=== PATIENT | male | born 1975 | race Caucasian/White ===

== ENCOUNTER 2019-11-04 23:10 | Emergency (ER) | payer MEDICAID ==
[~2019-11-04] VITALS: Ht 180.3 cm; Wt 53.9 kg
--- NOTE | 2019-11-04 23:56 | NUR ---
PT C/O LEFT SIDE DIMINISHED SENSATION FOR A COUPLE DAYS. 1X EMESIS TODAY. BM 3 DAYS AGO. JUST NOT FEELING WELL. CONNECTED TO MONITORING. CALL LIGHT IN REACH.
[2019-11-04 23:57] LABS: BASOPHILS # (AUTO) 0.04 x10^3/uL (0-0.1); BASOPHILS % (AUTO) 0 % (0-1); EOSINOPHILS # (AUTO) 0.07 x10^3/uL (0-0.4); EOSINOPHILS % (AUTO) 1 % (1-7); LYMPHOCYTES # (AUTO) 2.82 x10^3/uL (1-3.4); LYMPHOCYTES % (AUTO) 31 % (22-44); MD NO; MEAN CORPUSCULAR HEMOGLOBIN 32.8 pg (27.5-34.5); MEAN CORPUSCULAR HGB CONC 33.2 g/dL (33.2-36.2); MEAN CORPUSCULAR VOLUME 98.7 fL (81-97); MEAN PLATELET VOLUME 8.3 fL (7.4-10.4); MONOCYTES % (AUTO) 10 % (2-9); NEUTROPHILS # (AUTO) 5.41 x10^3/uL (1.8-6.8); NEUTROPHILS % (AUTO) 59 % (42-75); PLATELET COUNT 223 x10^3/uL (130-400); RED CELL DISTRIBUTION WIDTH 13.1 % (9.4-14.8)
--- NOTE | 2019-11-05 00:02 | NUR ---
RECEIVED REPORT FROM VIKAS SAM.
[2019-11-05 00:10] LABS: ALANINE AMINOTRANSFERASE 21 U/L (12-78); ALBUMIN 3.7 g/dL (3.4-5.0); ANION GAP 6 mmol/L (5-15); CALCIUM 8.3 mg/dL (8.5-10.1); CHLORIDE 113 mmol/L (98-107); CREATININE 0.86 mg/dL (0.7-1.3)
[2019-11-05 00:15] LABS: ALKALINE PHOSPHATASE 51 U/L (45-117); BILIRUBIN,TOTAL 0.4 mg/dL (0.2-1.0); TOTAL PROTEIN 6.9 g/dL (6.4-8.2); TROPONIN I < 0.015 ng/mL (0.000-0.045)
--- NOTE | 2019-11-05 01:46 | NUR ---
ALL LABS AND X RAY RESULTED. PA AT BEDSIDE FOR RE-EVALUATION.
--- NOTE | 2019-11-05 02:07 | NUR ---
PATIENT DISCHARGED WITH INSTRUCTION. VERBALIZED UNDERSTANDING.
[2019-11-05 02:20] VITALS: BP 123/71
== END 2019-11-05 02:22 | disposition home or self-care (01) ==
LOC: ED 11-05 00:38
DX: I10 Essential (primary) hypertension (principal); R07.9 Chest pain, unspecified; R20.2 Paresthesia of skin; J44.9 Chronic obstructive pulmonary disease, unspecified; G40.909 Epilepsy, unspecified, not intractable, without status epilepticus; Z87.891 Personal history of nicotine dependence
CPT/HCPCS: 36415; 71045; 80053; 84484; 85025; 93005; 99284

== ENCOUNTER 2019-11-19 12:40 | Emergency (ER) | payer MEDICAID ==
[~2019-11-19] VITALS: Ht 177.8 cm; Wt 59.1 kg
--- NOTE | 2019-11-19 13:27 | NUR ---
PT STATES HAVING MEMORY PROBLEMS FOR ABOUT A MONTH, PT STATES HAVING NUMBNESS ON L SIDE OF BODY THAT IS INTERMITTANT. PT ALSO STATES BP HAS BEEN ELEVATED LATELY AND HE DOESNT TAKE BP MEDS. PT DENIES CP, SOB.
[2019-11-19] MEDS ORDERED: ACETAMINOPHEN 500 MG TABLET PO ONE (14:00)
[2019-11-19 14:07] LABS: BASOPHILS # (AUTO) 0.04 x10^3/uL (0-0.1); BASOPHILS % (AUTO) 0 % (0-1); EOSINOPHILS # (AUTO) 0.04 x10^3/uL (0-0.4); EOSINOPHILS % (AUTO) 0 % (1-7); LYMPHOCYTES # (AUTO) 1.76 x10^3/uL (1-3.4); LYMPHOCYTES % (AUTO) 17 % (22-44); MD NO; MEAN CORPUSCULAR HEMOGLOBIN 32.7 pg (27.5-34.5); MEAN CORPUSCULAR HGB CONC 33.7 g/dL (33.2-36.2); MEAN CORPUSCULAR VOLUME 97.1 fL (81-97); MEAN PLATELET VOLUME 7.6 fL (7.4-10.4); MONOCYTES # (AUTO) 0.63 x10^3/uL (0.2-0.8); MONOCYTES % (AUTO) 6 % (2-9); NEUTROPHILS # (AUTO) 8.21 x10^3/uL (1.8-6.8); NEUTROPHILS % (AUTO) 77 % (42-75); PLATELET COUNT 307 x10^3/uL (130-400); RED BLOOD COUNT 4.61 x10^6/uL (4.38-5.82); RED CELL DISTRIBUTION WIDTH 13.6 % (9.4-14.8)
[2019-11-19 14:10] LABS: INTERNATIONAL NORMALIZED RATIO 0.98 (0.93-1.1); PROTHROMBIN TIME 10.3 Seconds (9.6-11.5)
[2019-11-19 14:13] LABS: ALANINE AMINOTRANSFERASE 20 U/L (12-78); ANION GAP 7 mmol/L (5-15); CALCIUM 8.9 mg/dL (8.5-10.1); CHLORIDE 111 mmol/L (98-107); CREATININE 0.67 mg/dL (0.7-1.3)
[2019-11-19 14:16] LABS: ALKALINE PHOSPHATASE 67 U/L (45-117); BILIRUBIN,TOTAL 0.4 mg/dL (0.2-1.0); TOTAL PROTEIN 7.5 g/dL (6.4-8.2)
[2019-11-19 14:22] LABS: MICROSCOPIC NOT IND
[2019-11-19 14:25] LABS: CULTURE INDICATED? NO
--- NOTE | 2019-11-19 14:30 | NUR ---
PT RESTING ON RAF UA COLLECTED AND SENT. PT REFUSED TYELENOL PER MD ORDER. NAD NOTED AT THIS TIME
[2019-11-19] MEDS ORDERED: ACETAMINOPHEN 500 MG TABLET ONE (14:35)
--- NOTE | 2019-11-19 15:18 | NUR ---
PT PLACED FOR RECHECK
--- NOTE | 2019-11-19 15:53 | NUR ---
PT TO HAVE LP PROCEDURE AT BEDSIDE, BY PA. SETUP SUPPLIED
--- NOTE | 2019-11-19 16:50 | NUR ---
LP PROCEDURE COMPLETED, AWAITING CSF ORDERS. PT TOLERATED WELL
[2019-11-19 17:03] LABS: GLUCOSE, CSF 61 mg/dL (40-80); TOTAL PROTEIN,CSF 50 mg/dL (15-45)
[2019-11-19 18:21] VITALS: BP 135/82
== END 2019-11-19 18:51 | disposition home or self-care (01) ==
LOC: ED 13:48
DX: R51 Headache (principal); R50.9 Fever, unspecified; J44.9 Chronic obstructive pulmonary disease, unspecified; I10 Essential (primary) hypertension; G40.909 Epilepsy, unspecified, not intractable, without status epilepticus
CPT/HCPCS: 36415; 62270; 71045; 80053; 81003; 82945; 83605; 84145; 84157; 85025; 85610; 87040; 87070; 87205; 87252; 89051; 93005; 99284